=== PATIENT | female | born 1930 | race Caucasian/White ===

== ENCOUNTER 2016-10-15 15:13 | Inpatient (IN) | payer MEDICARE ==
[~2016-10-15 15:13] MED LIST: ALBUTEROL INH 0.3 ML AERO NEB; ALBUTEROL0.83 MG/ML INH; ALENDRONATE SOD70 M2 PO; ALENDRONATE SOD70 MG PO; AMOXICILLIN875 MG PO; ATIVAN0.5 MG PO; BACTRIM 400-801 EAC1 PO; BACTRIM DS TAB1 EAC2 PO; BENADRYL25 M3 PO; BROVANA15 MCG/2 M IH; BROVANA15 MCG/22 INH; BUSPAR5 MG; BUSPAR5 MG PO; BUSPIRONE HCL5 MG PO; CALCIUM 600 +1 EAC2 PO; CALCIUM 600 +1 EACH PO; CALCIUM600 M1 PO; CALCIUM600 MG PO; CARDIZEM CD240 MG PO; CEFUROXIME250 MG PO; CHLORASEPTIC T180 ML MM; COLACE100 M1 PO; COLACE100 MG PO; COMBIVENT1 PUFF INH; DILTIAZEM 24HR240 M3 PO; DUONEB 2.5-0.5 M3 ML IH; FOSAMAX70 MG; FOSAMAX70 MG PO; FUROSEMIDE40 M2 PO; FUROSEMIDE40 MG; FUROSEMIDE40 MG PO; IPRAT-ALBUT 0.5-3 ML IH; IPRAT-ALBUT 0.5-3 ML INH; IPRATROP; IRON SUPPLEMEN325 M1 PO; IRON SUPPLEMEN325 MG PO; IRON325 M1 PO; IVERMECTIN PO; K-DUR20 ME1 PO; K-DUR20 ME2 PO; LASIX40 M1 PO; LASIX40 MG PO; LEVAQUIN500 M1 PO; LEVAQUIN500 MG PO; LEVAQUIN750 MG PO; LIDODERM700 MG TOP; LISINOPRIL40 MG; LISINOPRIL40 MG PO; LOPRESSOR25 MG/TAB PO; LORAZEPAM0.5 MG; LORAZEPAM0.5 MG PO; METOPROLOL TART25 M1 PO; METOPROLOL TART25 MG; METOPROLOL TART25 MG PO; MILK OF MA400 MG/5 M PO; MILK OF MAGNESIA PO; MIRALAX12 EA PO; MONTELUKAST SOD10 M2 PO; MUCINEX600 M1 PO; MUCINEX600 MG PO; MULTIVITAMIN1 TAB PO; MYCELEX10 MG MM; NORCO 5/3251 TAB PO; NORVASC5 M1 PO; NORVASC5 MG; NORVASC5 MG PO; NYSTATIN100000 UNI PO; NYSTATIN60 ML PO; OMEPRAZOLE20 MG PO; OMEPRAZOLE40 M2 PO; ORGAN-I NR200 MG PO; PERMETHRIN60 G1 TP; POTASSIUM CHLO20 ME3 PO; PREDNISONE10 MG PO; PREDNISONE20 MG PO; PREDNISONE5 M1 PO; PREDNISONE5 MG PO; PRINIVIL40 MG PO; PROVENTIL17 GM IH; PULMICORT0.5 MG/2 M IH; PULMICORT0.5 MG/22 INH; ROBITUSSIN-AC5 ML PO; SELENIUM SULFI120 ML EXT; SENEXON-S TABL1 EAC1 PO; SENEXON8.6 M1 PO; SPIRONOLACTONE25 MG; SYMBICORT 160-4.6 GM IH; TESSALON100 MG/CAP PO; THERA-M1 EAC1 PO; THEREMS1 TAB PO; TRAMADOL HCL50 M2 PO; TYLENOL PM EX-S1 TAB PO; TYLENOL325 M2 PO; TYLENOL325 MG PO; TYLENOL500 MG PO; XARELTO15 M1 PO; XARELTO15 MG PO; ZANAFLEX2 M3 PO; ZESTRIL10 M3 PO; ZESTRIL40 M2 PO; ZITHROMAX250MG Z-PAK PO; [UNRECOGNIZED DRUG - OTHER]; [UNRECOGNIZED DRUG - OTHER] PO; [UNRECOGNIZED DRUG - OTHER] PO
[2016-10-15] MEDS ORDERED: DURAGESIC1 EAC1 TOP (18:56)
[2016-10-15] MEDS ORDERED: VITAMIN D31000 UNI4 PO (18:57)
[2016-10-15] MEDS ORDERED: LASIX40 M1 PO (18:57)
[2016-10-15 19:52] LABS: BASO % 0.2 % (0-2); EOS % 0.2 % (0-7); HCT-HEMATOCRIT 32.8 % (34.0-49.0); HGB-HEMOGLOBIN 10.8 gm/dl (12.0-15.5); IMMATURE GRANULOCYTES ABSOLUTE 0.04 tho/cmm (0-0.03); IMMATURE GRANULOCYTES PERCENT 0.4 % (0-0.3); LYMPH % 9.7 % (20-45); LYMPH ABSOLUTE COUNT 1.1 tho/cmm (0.8-4.5); MCH (MEAN CORPUSCULAR HGB) 29.8 pg (28.0-32.0); MCHC MEAN CORPUSCULAR HGB CONC 32.9 % (32.0-36.0); MCV (MEAN CELL VOLUME) 90.4 fl (82.0-96.0); MONO % 11.4 % (0-12); MONOCYTE ABSOLUTE COUNT 1.3 tho/cmm (0.0-1.2); NEUTROPHIL ABSOLUTE COUNT 8.9 tho/cmm (1.6-8.0); NEUTROPHIL-AUTOMATED 8.9 tho/cmm (1.6-8.0); NEUTROPHILS % 78.1 % (40-80); PLATELET COUNT 272 tho/cmm (150-450); RED BLOOD COUNT 3.63 mil/cmm (4.00-5.20); RED CELL DISTRIBUTION WIDTH 15.7 % (12.4-16.4); WHITE BLOOD COUNT 11.4 tho/cmm (4.0-10.0)
[2016-10-15 20:04] LABS: ALBUMIN 3.5 g/dl (3.5-5.0); ALKALINE PHOSPHATASE 60 U/L (33-138); ALT/SGPT 21 U/L (12-78); ANION GAP 9 mmol/L (0-20); AST/SGOT 23 U/L (10-40); BILIRUBIN,TOTAL 0.5 mg/dl (0-1.5); BLOOD UREA NITROGEN 24 mg/dl (6-24); CALCIUM 9.6 mg/dl (8.5-10.5); CARBON DIOXIDE-VENOUS 36 mmol/L (22-32); CHLORIDE 94 mmol/l (96-110); GLUCOSE 132 mg/dL (70-110); SODIUM 135 mmol/L (135-145); eGFR VALUE FOR BLACK >90 mL/Min
[2016-10-15 22:16] LABS: URINE APPEARANCE CLOUDY; URINE BILIRUBIN NEGATIVE (NEG); URINE BLOOD SMALL (NEG); URINE COLOR YELLOW; URINE GLUCOSE (UA) NEGATIVE (NEG); URINE KETONE NEGATIVE (NEG); URINE LEUKOCYTE ESTERASE POSITIVE (NEG); URINE NITRITE NEGATIVE (NEG); URINE PH 6.5 (5.0-8.0); URINE PROTEIN SMALL (NEG); URINE SPECIFIC GRAVITY 1.015 (1.003-1.030)
[2016-10-15 22:21] LABS: URINE BACTERIA 4+; URINE EPITHELIAL CELLS 0 /[HPF] (0-10); URINE RBC 0 /[HPF] (0-5); URINE WBC 20-25 /[HPF] (0-5)
[2016-10-16 06:20] LABS: BASO % 0.2 % (0-2); EOSINOPHIL ABSOLUTE COUNT 0.1 tho/cmm (0.0-0.7); HCT-HEMATOCRIT 27.8 % (34.0-49.0); HGB-HEMOGLOBIN 9.3 gm/dl (12.0-15.5); IMMATURE GRANULOCYTES ABSOLUTE 0.04 tho/cmm (0-0.03); IMMATURE GRANULOCYTES PERCENT 0.4 % (0-0.3); LYMPH % 20.2 % (20-45); LYMPH ABSOLUTE COUNT 1.8 tho/cmm (0.8-4.5); MCH (MEAN CORPUSCULAR HGB) 30.3 pg (28.0-32.0); MCHC MEAN CORPUSCULAR HGB CONC 33.5 % (32.0-36.0); MCV (MEAN CELL VOLUME) 90.6 fl (82.0-96.0); MONO % 17.4 % (0-12); MONOCYTE ABSOLUTE COUNT 1.6 tho/cmm (0.0-1.2); NEUTROPHIL ABSOLUTE COUNT 5.5 tho/cmm (1.6-8.0); NEUTROPHIL-AUTOMATED 5.5 tho/cmm (1.6-8.0); NEUTROPHILS % 60.8 % (40-80); PLATELET COUNT 244 tho/cmm (150-450); RED BLOOD COUNT 3.07 mil/cmm (4.00-5.20); RED CELL DISTRIBUTION WIDTH 16.1 % (12.4-16.4)
[2016-10-16 06:22] LABS: INR 0.9 INR (0.9-1.1); PROTHROMBIN TIME 10.4 SECONDS (9.0-13.6)
[2016-10-16 06:29] LABS: ANION GAP 10 mmol/L (0-20); BLOOD UREA NITROGEN 19 mg/dl (6-24); CALCIUM 8.7 mg/dl (8.5-10.5); CARBON DIOXIDE-VENOUS 33 mmol/L (22-32); CHLORIDE 98 mmol/l (96-110); CREATININE 0.57 mg/dl (0.50-1.10); GLUCOSE 113 mg/dL (70-110); POTASSIUM 3.6 mmol/L (3.7-5.1); SODIUM 137 mmol/L (135-145); eGFR VALUE FOR BLACK >90 mL/Min
[2016-10-17 06:24] LABS: BASO % 0.1 % (0-2); HCT-HEMATOCRIT 24.4 % (34.0-49.0); IMMATURE GRANULOCYTES ABSOLUTE 0.04 tho/cmm (0-0.03); IMMATURE GRANULOCYTES PERCENT 0.4 % (0-0.3); LYMPH % 9.3 % (20-45); LYMPH ABSOLUTE COUNT 0.9 tho/cmm (0.8-4.5); MCH (MEAN CORPUSCULAR HGB) 30.3 pg (28.0-32.0); MCHC MEAN CORPUSCULAR HGB CONC 32.8 % (32.0-36.0); MCV (MEAN CELL VOLUME) 92.4 fl (82.0-96.0); MEAN PLATELET VOLUME 8.8 cmc (9.4-12.4); MONO % 13.3 % (0-12); MONOCYTE ABSOLUTE COUNT 1.3 tho/cmm (0.0-1.2); NEUTROPHIL ABSOLUTE COUNT 7.7 tho/cmm (1.6-8.0); NEUTROPHIL-AUTOMATED 7.7 tho/cmm (1.6-8.0); NEUTROPHILS % 76.9 % (40-80); PLATELET COUNT 221 tho/cmm (150-450); RED BLOOD COUNT 2.64 mil/cmm (4.00-5.20); RED CELL DISTRIBUTION WIDTH 16.4 % (12.4-16.4)
[2016-10-17 06:44] LABS: ANION GAP 10 mmol/L (0-20); BLOOD UREA NITROGEN 14 mg/dl (6-24); CALCIUM 8.6 mg/dl (8.5-10.5); CARBON DIOXIDE-VENOUS 31 mmol/L (22-32); CHLORIDE 99 mmol/l (96-110); CREATININE 0.66 mg/dl (0.50-1.10); GLUCOSE 139 mg/dL (70-110); POTASSIUM 3.8 mmol/L (3.7-5.1); SODIUM 136 mmol/L (135-145); eGFR VALUE FOR BLACK >90 mL/Min
[2016-10-18 05:50] LABS: BASO % 0.1 % (0-2); EOSINOPHIL ABSOLUTE COUNT 0.1 tho/cmm (0.0-0.7); HGB-HEMOGLOBIN 7.3 gm/dl (12.0-15.5); IMMATURE GRANULOCYTES ABSOLUTE 0.03 tho/cmm (0-0.03); IMMATURE GRANULOCYTES PERCENT 0.4 % (0-0.3); LYMPH % 18.8 % (20-45); LYMPH ABSOLUTE COUNT 1.5 tho/cmm (0.8-4.5); MCH (MEAN CORPUSCULAR HGB) 30.4 pg (28.0-32.0); MCHC MEAN CORPUSCULAR HGB CONC 32.4 % (32.0-36.0); MCV (MEAN CELL VOLUME) 93.8 fl (82.0-96.0); MEAN PLATELET VOLUME 9.1 cmc (9.4-12.4); MONO % 18.2 % (0-12); MONOCYTE ABSOLUTE COUNT 1.4 tho/cmm (0.0-1.2); NEUTROPHIL ABSOLUTE COUNT 4.7 tho/cmm (1.6-8.0); NEUTROPHIL-AUTOMATED 4.7 tho/cmm (1.6-8.0); NEUTROPHILS % 61.5 % (40-80); PLATELET COUNT 227 tho/cmm (150-450); RED CELL DISTRIBUTION WIDTH 16.4 % (12.4-16.4); WHITE BLOOD COUNT 7.7 tho/cmm (4.0-10.0)
[2016-10-18 06:04] LABS: HCT-HEMATOCRIT 22.5 % (34.0-49.0)
[2016-10-20 05:24] LABS: HGB-HEMOGLOBIN 7.4 gm/dl (12.0-15.5); MCV (MEAN CELL VOLUME) 96.7 fl (82.0-96.0); RED CELL DISTRIBUTION WIDTH 17.1 % (12.4-16.4)
[2016-10-20 05:34] LABS: HCT-HEMATOCRIT 23.8 % (34.0-49.0)
[2016-10-21] MEDS ORDERED: MIRALAX17 G2 PO (09:43)
[2016-10-21] MEDS ORDERED: PERCOCET 5-3251 EACH PO (09:43)
[2016-10-21] MEDS ORDERED: ZOFRAN4 M2 PO (09:44)
[2016-10-21] MEDS ORDERED: MACROBID 100 M100 M1 PO (09:45)
== END 2016-10-21 11:12 | DRG 480 ==
LOC: EDMED 15:13 → EMR2 20:29 → 5EA 22:45 → ORE 10-16 12:54 → PACU 10-16 15:32 → 5EA 10-16 16:50
PROVIDERS: Emergency Medicine; Family Medicine; Internal Medicine; Orthopaedic Surgery Orthopaedic Surgery of the Spine; Urology; ADMIT Hospitalist
PROC: 0QSC04Z Reposition Left Lower Femur with Internal Fixation Device, Open Approach (ICD-10-PCS; principal; 2016-10-16)
DX: S72.455A Nondisplaced supracondylar fracture without intracondylar extension of lower end of left femur, initial encounter for closed fracture (principal); E43 Unspecified severe protein-calorie malnutrition; L89.302 Pressure ulcer of unspecified buttock, stage 2; J44.9 Chronic obstructive pulmonary disease, unspecified; E22.2 Syndrome of inappropriate secretion of antidiuretic hormone; N39.0 Urinary tract infection, site not specified; G30.9 Alzheimer's disease, unspecified; R13.10 Dysphagia, unspecified; I48.91 Unspecified atrial fibrillation; R64 Cachexia; F02.80 Dementia in other diseases classified elsewhere, unspecified severity, without behavioral disturbance, psychotic disturbance, mood disturbance, and anxiety; Z68.1 Body mass index [BMI] 19.9 or less, adult; D62 Acute posthemorrhagic anemia; Z91.81 History of falling; I10 Essential (primary) hypertension; M81.0 Age-related osteoporosis without current pathological fracture; M40.209 Unspecified kyphosis, site unspecified; W19.XXXA Unspecified fall, initial encounter; R62.7 Adult failure to thrive; F41.9 Anxiety disorder, unspecified; G89.4 Chronic pain syndrome; Z77.22 Contact with and (suspected) exposure to environmental tobacco smoke (acute) (chronic); Z87.898 Personal history of other specified conditions
CPT/HCPCS: G8978-GP-CL; G8979-GP-CK; J0690; J1644; J2270; J2405; J3010; J7030